=== PATIENT | male | born 1985 ===

== ENCOUNTER 2017-07-09 19:25 | Inpatient (IN) | payer MEDICAID ==
[2017-07-09 19:30] VITALS: BMI 28.5
--- NOTE | 2017-07-09 19:54 | ED PDOC ---
Arrival/HPI - General Chief Complaint: Psychiatric Evaluation Time Seen by Provider: 07/09/17 19:53 Past Medical History - Infectious Disease Hx of Infectious Diseases: None - Cardiac Hx Cardiac Disorders: No - Pulmonary Hx Respiratory Disorders: No - Neurological Hx Neurological Disorder: No - HEENT Hx HEENT Disorder: No - Renal Hx Renal Disorder: No - Endocrine/Metabolic Hx Endocrine Disorders: No - Hematological/Oncological Hx Blood Disorders: No - Integumentary Hx Dermatological Disorder: No - Musculoskeletal/Rheumatological Hx Musculoskeletal Disorders: No - Gastrointestinal Hx Gastrointestinal Disorders: No - Genitourinary/Gynecological Hx Genitourinary Disorders: No - Psychiatric Hx Psychophysiologic Disorder: Yes Hx Bipolar Disorder: Yes Hx Schizophrenia: Yes Hx Substance Use: Yes - Anesthesia Hx Anesthesia: No Family/Social History Smoking Status: Heavy Smoker > 10 Cigarettes Daily Hx Alcohol Use: Yes Frequency of alcohol use: Socially Hx Substance Use: Yes Substance used: marijuana Physical Exam Vital Signs Temp Pulse Resp BP Pulse Ox 07/09/17 19:25 97.5 F L 87 16 133/95 H 100 Disposition/Present on Arrival - Present on Arrival History of DVT/PE: No History of Uncontrolled Diabetes: No Urinary Catheter: No History of Decub. Ulcer: No History Surgical Site Infection Following: None - Disposition Referrals: Dash Michel MD [Primary Care Provider] - Follow up with primary
--- NOTE | 2017-07-09 20:22 | ED PDOC ---
Arrival/HPI - General Historian: Patient, Other ([facility]) - General Chief Complaint: Psychiatric Evaluation Time Seen by Provider: 07/09/17 19:53 - History of Present Illness Narrative History of Present Illness (Text): 07/09/17 20:19 31yr old male presents as transfer from [facility] for schizoaffective disorder with SI. pt states he is feeling depressed. no cp or sob. no abdominal pain. no fever/chills. no other complaints (Azoia,Alyssa T) Past Medical History - Provider Review Nursing Documentation Reviewed: Yes - Travel History Have you recently traveled outside [place] w/in the past 3 mons?: No - Infectious Disease Hx of Infectious Diseases: None - Cardiac Hx Cardiac Disorders: No - Pulmonary Hx Respiratory Disorders: No - Neurological Hx Neurological Disorder: No - HEENT Hx HEENT Disorder: No - Renal Hx Renal Disorder: No - Endocrine/Metabolic Hx Endocrine Disorders: No - Hematological/Oncological Hx Blood Disorders: No - Integumentary Hx Dermatological Disorder: No - Musculoskeletal/Rheumatological Hx Musculoskeletal Disorders: No - Gastrointestinal Hx Gastrointestinal Disorders: No - Genitourinary/Gynecological Hx Genitourinary Disorders: No - Psychiatric Hx Psychophysiologic Disorder: Yes Hx Bipolar Disorder: Yes Hx Schizophrenia: Yes Hx Substance Use: Yes - Anesthesia Hx Anesthesia: No Family/Social History - Physician Review Nursing Documentation Reviewed: Yes Family/Social History: Unknown Family HX Smoking Status: Heavy Smoker > 10 Cigarettes Daily Hx Alcohol Use: Yes Frequency of alcohol use: Socially Hx Substance Use: Yes Substance used: marijuana Allergies/Home Meds Allergies/Adverse Reactions: Allergies No Known Allergies Allergy (Verified 07/09/17 20:15) Review of Systems - Review of Systems Constitutional: absent: Fatigue, Fevers Respiratory: absent: SOB, Cough Cardiovascular: absent: Chest Pain, Palpitations Gastrointestinal: absent: Abdominal Pain, Nausea, Vomiting Musculoskeletal: absent: Arthralgias Skin: absent: Rash, Pruritis Psychiatric: Depression, Suicidal Ideation. absent: Anxiety Physical Exam Vital Signs Reviewed: Yes Temperature: Afebrile Blood Pressure: Hypertensive Pulse: Regular Respiratory Rate: Normal Appearance: Positive for: Well-Appearing, Non-Toxic, Comfortable Pain Distress: None Mental Status: Positive for: Alert and Oriented X 3 - Systems Exam Head: Present: Atraumatic Respiratory/Chest: Present: Clear to Auscultation Cardiovascular: Present: Regular Rate and Rhythm Abdomen: No: Tenderness Upper Extremity: Present: Normal Inspection Lower Extremity: Present: Normal Inspection Neurological: Present: GCS=15, Speech Normal Skin: Present: Warm, Dry, Normal Color. No: Rashes Psychiatric: Present: Alert, Oriented x 3, Depressed Mood, Suicidal Ideation Vital Signs Temp Pulse Resp BP Pulse Ox 07/09/17 19:25 97.5 F L 87 16 133/95 H 100 Medical Decision Making ED Course and Treatment: 07/09/17 20:20 31yr old male transfer from [facility] with SI. labs reviewed from [facility] charting. pt with stable vitals. no distress. accepting physician; dr. díaz impression; schizoaffective disorder admit to behavioral health floor (Alyssa Eason) - Medication Orders Current Medication Orders: Acetaminophen (Tylenol 325mg Tab) 650 mg PO Q4 PRN PRN Reason: Pain, moderate (4-7) Al Hydrox/Mg Hydrox/Simethicone (Maalox Plus 30 Ml) 30 ml PO DAILY PRN PRN Reason: Upset Stomach Divalproex Sodium (Depakote Dr (*Bid*)) 500 mg PO BID SAM PRN Reason: Protocol Folic Acid (Folic Acid) 1 mg PO DAILY SAM Lorazepam (Ativan) 2 mg PO TID SAM PRN Reason: Protocol Lorazepam (Ativan) 2 mg PO Q6H PRN; Protocol PRN Reason: Agitation Magnesium Hydroxide (Milk Of Magnesia) 30 ml PO DAILY PRN PRN Reason: Constipation Quetiapine Fumarate (Seroquel) 150 mg PO HS SAM PRN Reason: Protocol Sertraline HCl (Zoloft) 100 mg PO DAILY SAM Trazodone HCl (Desyrel) 50 mg PO HS PRN PRN Reason: Insomnia Ziprasidone (Geodon Cap) 20 mg PO Q6 PRN; Protocol PRN Reason: Agitation Ziprasidone (Geodon Inj) 20 mg IM Q6 PRN; Protocol PRN Reason: Agitation Discontinued Medications Lorazepam (Ativan) 2 mg PO PRN PRN; Protocol PRN Reason: alcohol withdrawal Disposition/Present on Arrival - Present on Arrival Any Indicators Present on Arrival: No History of DVT/PE: No History of Uncontrolled Diabetes: No Urinary Catheter: No History of Decub. Ulcer: No History Surgical Site Infection Following: None - Disposition Have Diagnosis and Disposition been Completed?: Yes Disposition Time: 20:22 Patient Plan: Admission - Disposition Diagnosis: Schizoaffective disorder Disposition: HOSPITALIZED Condition: FAIR
[2017-07-09] MEDS ORDERED: Alum-Mag Hydrox-Simethicone Susp (30 mL) PO PRN (20:29)
[2017-07-09] MEDS ORDERED: Magnesium Hydroxide Susp 30 ml UD PO PRN (20:29)
--- NOTE | 2017-07-09 22:54 | PCM.BM ---
<Gamaliel Howe - Last Filed: 07/09/17 22:52> Treatment Plan Problems - Problems identified on initial assessmt Depression Date Initiated: 07/09/17 Time Initiated: 21:30 Assessment reference: NA Status: Active suicidal ideation Date Initiated: 07/09/17 Time Initiated: 21:30 Assessment reference: NA Status: Referred Treatment assets and liabiliti Patient Assests: cooperative, educated, self-reliant, ADL independent, negotiates basic needs Patient Liabilities: financial problems, poor support system, substance abuse - Milieu Protocol Maintain good personal hygiene: daily Encourage regular showers, daily Remind patient to perform daily oral care, daily Assist patient to perform ADL's Conduct patient checks and document Observation sheet: Q15 minutes Maintain personal safety: every shift Educate patient to report safety concerns to staff, every shift Monitor environment for contraband/sharps Medication safety: Monitor for expected outcome, potential side effects: every shift, Assess barriers to learning: every shift, Assess readiness for medication education: every shift Discharge/Continuing Care - Education Needs Education Needs: Patient Medication, Patient Diagnosis/Disease Process, Patient Coping Skills, Patient Anger Management skills, Patient Community resources, Patient Activities of Daily Living - Discharge Discharge Criteria: Tolerates medication w/o severe side effects, Free of Suicidal thoughts, Free of Homicidal thoughts <Emely Mota - Last Filed: 07/10/17 16:04> Family Contact Family involvement: Famliy/SO not involved <Tl Newsome - Last Filed: 07/13/17 10:01> Treatment Plan Problems - Problems identified on initial assessmt Ineffective Coping Date Initiated: 07/13/17 Time Initiated: 10:00 Assessment reference: NA Status: Active Priority: 1 Hopelessness Date Initiated: 07/13/17 Time Initiated: 10:00 Assessment reference: NA Status: Active Priority: 2 Worthlessness Date Initiated: 07/13/17 Time Initiated: 10:01 Assessment reference: NA Priority: 3 Medication Nonadherence Date Initiated: 07/13/17 Time Initiated: 10:01 Assessment reference: NA Status: Active Priority: 4
[2017-07-10 07:40] LABS: CHOLESTEROL 186 mg/dL (130-200); GLUCOSE,FASTING 90 mg/dL (65-110)
[2017-07-10] MEDS: Divalproex 250 mg DR (BID formulation) PO SCH ×2 (10:02→15:55)
--- NOTE | 2017-07-10 12:42 | CP.PCM.CON ---
<Jake Aguilar - Last Filed: 07/10/17 15:59> History of Present Illness - History of Present Illness History of Present Illness: This is a 31 year old male with a past medical history of schizo-affective disorder with Suicidal ideation who comes to the emergency department after feeling down and drinking 2 24oz. 4 [employer] beers. The patient reports wanting to hurt himself and called the the ambulance to come to emergency department. The patient was admitted to the Psychiatry unit at [facility] as a result. The patient's last attempt at self harm was August 2016 when he took 35 Motrin pills. The patient denies SI, HI, AH, VH at this time. The patient denies any chest pain, lightheadedness, dizziness, changes in vision, abdominal pain, palpitations, or any other complaints. PMD: Dr. Michel Psychiatrist: Dr. Jeter Past medical hx:See HPI Medications: Tylenol, Maalox, Depakote, Folic Acid, Ativan, Milk of Magnesia, Seroquel, Zoloft, Desyrel, Geodon Past surgical hx: None Allergies: NKDA Family hx: Grandfather(Type 2 Diabetes Mellitus) Review of Systems - Constitutional Constitutional: As Per HPI - EENT Eyes: As Per HPI Ears: As Per HPI Nose/Mouth/Throat: As Per HPI - Cardiovascular Cardiovascular: As Per HPI - Respiratory Respiratory: As Per HPI - Gastrointestinal Gastrointestinal: As Per HPI - Genitourinary Genitourinary: As Per HPI - Musculoskeletal Musculoskeletal: As Per HPI - Integumentary Integumentary: As Per HPI - Neurological Neurological: As Per HPI - Psychiatric Psychiatric: As Per HPI - Endocrine Endocrine: As Per HPI Past Patient History - Infectious Disease Hx of Infectious Diseases: None - Past Social History Smoking Status: Heavy Smoker > 10 Cigarettes Daily - CARDIAC Hx Cardiac Disorders: No - PULMONARY Hx Respiratory Disorders: No - NEUROLOGICAL Hx Neurological Disorder: No - HEENT Hx HEENT Problems: No - RENAL Hx Chronic Kidney Disease: No - ENDOCRINE/METABOLIC Hx Endocrine Disorders: No - HEMATOLOGICAL/ONCOLOGICAL Hx Blood Disorders: No - INTEGUMENTARY Hx Dermatological Problems: No - MUSCULOSKELETAL/RHEUMATOLOGICAL Hx Musculoskeletal Disorders: No - GASTROINTESTINAL Hx Gastrointestinal Disorders: No - GENITOURINARY/GYNECOLOGICAL Hx Genitourinary Disorders: No - PSYCHIATRIC Hx Depression: Yes Hx Substance Use: Yes - SURGICAL HISTORY Hx Surgeries: No - ANESTHESIA Hx Anesthesia: No Meds Allergies/Adverse Reactions: Allergies Allergy/AdvReac Type Severity Reaction Status Date / Time No Known Allergies Allergy Verified 07/09/17 22:08 - Medications Medications: Current Medications Acetaminophen (Tylenol 325mg Tab) 650 mg PO Q4 PRN PRN Reason: Pain, moderate (4-7) Al Hydrox/Mg Hydrox/Simethicone (Maalox Plus 30 Ml) 30 ml PO DAILY PRN PRN Reason: Upset Stomach Divalproex Sodium (Depakote Dr (*Bid*)) 500 mg PO BID SAM PRN Reason: Protocol Last Admin: 07/10/17 10:02 Dose: 500 mg Folic Acid (Folic Acid) 1 mg PO DAILY [facility] Last Admin: 07/10/17 10:02 Dose: 1 mg Lorazepam (Ativan) 2 mg PO TID SAM PRN Reason: Protocol Last Admin: 07/10/17 10:01 Dose: 2 mg Lorazepam (Ativan) 2 mg PO Q6H PRN; Protocol PRN Reason: Agitation Magnesium Hydroxide (Milk Of Magnesia) 30 ml PO DAILY PRN PRN Reason: Constipation Quetiapine Fumarate (Seroquel) 150 mg PO HS SAM PRN Reason: Protocol Last Admin: 07/09/17 21:38 Dose: 150 mg Sertraline HCl (Zoloft) 100 mg PO DAILY [facility] Last Admin: 07/10/17 10:02 Dose: 100 mg Trazodone HCl (Desyrel) 50 mg PO HS PRN PRN Reason: Insomnia Ziprasidone (Geodon Cap) 20 mg PO Q6 PRN; Protocol PRN Reason: Agitation Ziprasidone (Geodon Inj) 20 mg IM Q6 PRN; Protocol PRN Reason: Agitation Physical Exam - Head Exam Head Exam: ATRAUMATIC, NORMAL INSPECTION, NORMOCEPHALIC - Eye Exam Eye Exam: EOMI, Normal appearance, PERRL. absent: Periorbital tenderness Pupil Exam: NORMAL ACCOMODATION, PERRL. absent: Irregular, Unequal - ENT Exam ENT Exam: Mucous Membranes Moist, Normal Exam. absent: Normal Oropharynx, TM's Normal Bilaterally - Neck Exam Neck exam: Positive for: Normal Inspection. Negative for: Lymphadenopathy, Thyromegaly - Respiratory Exam Respiratory Exam: Clear to Auscultation Bilateral, NORMAL BREATHING PATTERN. absent: Chest Wall Tenderness, Prolonged Expiratory Phase, Respiratory Distress - Cardiovascular Exam Cardiovascular Exam: REGULAR RHYTHM, RRR, +S1, +S2. absent: Gallop, Rubs - GI/Abdominal Exam GI & Abdominal Exam: Normal Bowel Sounds, Soft. absent: Organomegaly, Tenderness - Back Exam Back exam: NORMAL INSPECTION. absent: CVA tenderness (L), CVA tenderness (R), paraspinal tenderness - Neurological Exam Neurological exam: Alert, CN II-XII Intact, Normal Gait, Oriented x3, Reflexes Normal - Psychiatric Exam Psychiatric exam: Normal Affect, Normal Mood - Skin Skin Exam: Dry, Intact, Normal Color, Warm Results - Vital Signs Recent Vital Signs: Last Vital Signs Temp 97.7 F 07/10/17 06:45 Pulse 64 07/10/17 06:45 Resp 20 07/10/17 06:45 BP 110/72 07/10/17 06:45 Pulse Ox 97 07/09/17 21:00 - Labs Labs: Laboratory Results - last 24 hr 07/10/17 07/10/17 07:20 07:20 Fasting Glucose 90 Triglycerides 140 Cholesterol 186 LDL Cholesterol Direct 82 HDL Cholesterol 71 H TSH 3rd Generation 0.56 Assessment & Plan - Assessment and Plan (Free Text) Assessment: This is a 31 year old male with a past medical history of shizo-affective disorder who was admitted to Psychiatry inpatient service at [facility]. Plan: 1. Schizo-affective disorder w/ SI. -Patient currently denies any SI, HI, AH, VH upon examination. -Will manage per Psychiatric recommendations. 2.Marijuana cessation -Patient reports occasional marijuana usage. -Counseled patient on cessation. Patient at this point has no medical complaints. The patient is a-febrile with no leukocytosis. TSH is normal, Hemoglobin and Hematocrit are stable, and liver enzymes are normal. Patient is hemo-dynamically stable and no medical intervention is required at this time. We are signing off. Feel free to consult us again if necessary. <Steve Leigh - Last Filed: 07/11/17 11:03> Meds - Medications Medications: Current Medications Acetaminophen (Tylenol 325mg Tab) 650 mg PO Q4 PRN PRN Reason: Pain, moderate (4-7) Al Hydrox/Mg Hydrox/Simethicone (Maalox Plus 30 Ml) 30 ml PO DAILY PRN PRN Reason: Upset Stomach Divalproex Sodium (Depakote Dr (*Bid*)) 500 mg PO BID SAM PRN Reason: Protocol Last Admin: 07/11/17 08:37 Dose: 500 mg Folic Acid (Folic Acid) 1 mg PO DAILY [facility] Last Admin: 07/11/17 08:37 Dose: 1 mg Lorazepam (Ativan) 2 mg PO TID SAM PRN Reason: Protocol Last Admin: 07/11/17 08:37 Dose: 2 mg Lorazepam (Ativan) 2 mg PO Q6H PRN; Protocol PRN Reason: Agitation Magnesium Hydroxide (Milk Of Magnesia) 30 ml PO DAILY PRN PRN Reason: Constipation Quetiapine Fumarate (Seroquel) 150 mg PO HS SAM PRN Reason: Protocol Last Admin: 07/10/17 22:08 Dose: 150 mg Sertraline HCl (Zoloft) 100 mg PO DAILY [facility] Last Admin: 07/11/17 08:37 Dose: 100 mg Trazodone HCl (Desyrel) 50 mg PO HS PRN PRN Reason: Insomnia Ziprasidone (Geodon Cap) 20 mg PO Q6 PRN; Protocol PRN Reason: Agitation Ziprasidone (Geodon Inj) 20 mg IM Q6 PRN; Protocol PRN Reason: Agitation Results - Vital Signs Recent Vital Signs: Last Vital Signs Temp 97.7 F 07/11/17 07:00 Pulse 68 07/11/17 07:00 Resp 20 07/11/17 07:00 BP 110/65 07/11/17 07:00 Pulse Ox 97 07/09/17 21:00 - Labs Labs: Laboratory Results - last 24 hr 07/10/17 07:20 RPR Nonreactive Attending/Attestation - Attestation I have personally seen and examined this patient.: Yes I have fully participated in the care of the patient.: Yes I have reviewed all pertinent clinical information: Yes Notes (Text): 07/11/17 11:02 Patient was seen and examined with paramedical aide. Agreed with resident assessment and plan. There is no active medical issue with this patient.We will sign off. Management plan was discussed in detail with patient Education was provided.
--- NOTE | 2017-07-10 21:06 | HP ---
IDENTIFYING INFORMATION: The patient is a 31-year-old male admitted because of feelings of depression. HISTORY OF PRESENT ILLNESS: The patient indicates that he needed to a "break from reality" and expressing feelings of depression after having been incarcerated (he was released after 5 years of imprisonment for aggravated assault in 2014). He reported having been in "quite a few" jailings including due the missed payment for fines, disorderly conduct, drinking in public with his last having drank about 2 days ago. He reported has been drinking alcohol again since this past March and reported to be depressed about his living conditions as he is living with his mother, who is "strict" and being dependent on her. His mother aged 55, resides in [place]. He denies any current suicidal ideation. He reported he initially came to the [facility] and was transferred here. While in the emergency room, he did express homicidal and suicidal thoughts and being "angry" about his condition. He presently, however, in his depressed, withdrawn state, denied homicidal thoughts. He indicated that he had seen a psychiatrist recently in [place], Dr. Jeter, who started him on Zoloft 50 mg. In the past, he had also been on Risperdal for 6 months (in 2014) prescribed by a [facility] Psychiatrist. He reported approximately 4 to 5 prior psychiatric admissions with his first at the age 23 at [facility]. He made his first suicide attempt last year by overdosing on Motrin leading to a [facility] hospitalization, leading then to a transfer to [facility] ([facility]viously [facility]). He denied any substance use (he had smoked substance use). He denied ever having any victim of emotional or sexual abuse. The patient indicated that he is a high school graduate who ended in where he remained for 4 years and was stationed at [employer] but who was given a "general discharge" because he tested positive for marijuana (again underscoring his lack of reliabilities earlier, he denied any substance abuse history). 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 He had worked for approximately 3 years at "[employer]," but was released because of his drinking alcohol. He then started having legal difficulties. He has not been but has had 2 significant relationships. 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 He then had a relationship approximately 2 years, but he terminated that marriage when she had a termination of a against his wishes. The patient reports he is an only child. He denied any familial psychiatric or substance abuse history. The patient smokes 5 cigarettes daily. He wants to stop smoking. He was given a nicotine patch. He has been drinking about two 24 ounces of vodka daily. DIAGNOSES: Depression, not otherwise specified, marijuana use, alcohol use, rule out other substance use. The patient is presently being maintained on Ativan 2 mg t.i.d., Depakote 500 mg b.i.d., Seroquel 150 mg at bedtime. HDL cholesterol was elevated at 61. Other indices are within normal limits. Rudy Mims MD/ PhD
[2017-07-11] MEDS: Divalproex 250 mg DR (BID formulation) PO SCH ×2 (08:37→17:09)
--- NOTE | 2017-07-11 08:48 | PCM.PYCHPN ---
Psychiatric Progress Note - Psychiatric Progress Note Patient seen today, length of contact: 25 min Patient Chief Complaint: "okay" Problems Identified/Issues Discussed: I reviewed assessment and recent notes. Patient was interviewed at bedside. He is oriented to location, month, year and circumstances. Reports feeling "okay". Affect is constricted. Patient denies any new concerns. Responses are logical and goal directed. He denies hallucinations. He is comfortable and denies side effects from medications. Staff notes indicate that patient spends most of his time in his room. He is pleasant upon approach but not interactive or talkative. Didn't go to group last evening. There were no behavioral issues overnight. Diagnostic Results: Depression NOS MJA Use Disorder Alcohol Use Medication Change: No Medical Record Reviewed: Yes Mental Status Examination - Cognitive Function Orientation: Person, Place, Situation Attention: WNL Concentration: WNL Association: WNL Fund of Knowledge: WNL - Mood Mood: Depressed ("okay") - Affect Affect: Constricted - Speech Speech: Appropriate - Formal Thought Process Formal Thought Process: No Impairment - Suicidal Ideation Suicidal Ideation: No - Homicidal Ideation Homicidal Ideation: No Goal/Treatment Plan - Goal/Treatment Plan Progress Toward Problem(s) and Goals/Treatment Plan: * c/w current tx and plan * No new weekend labs * Vitals reviewed and noted below: Selected Entries 07/09/17 07/10/17 07/10/17 21:00 06:45 16:04 Temperature 98.3 F 97.7 F Pulse Rate 73 64 74 Respiratory 18 20 Rate Blood Pressure 125/91 H 110/72 124/72 O2 Sat by Pulse 97 Oximetry
[2017-07-12] MEDS: Divalproex 250 mg DR (BID formulation) PO SCH ×2 (09:22→16:54)
--- NOTE | 2017-07-12 09:23 | PCM.PYCHPN ---
Psychiatric Progress Note - Psychiatric Progress Note Patient seen today, length of contact: 25 min Patient Chief Complaint: "okay, better, my mind is clearer" Problems Identified/Issues Discussed: I reviewed recent notes and interviewed patient at bedside. He is oriented to location, month, year and circumstances. Reports feeling "okay, better, my mind is clearer". Affect remains constricted. Patient denies any new concerns. Responses are logical and goal directed. He denies hallucinations and paranoia. He is comfortable and denies side effects from medications or issues with sleep/ appetite. Staff notes indicate that patient spends most of his time in his room. He is pleasant upon approach but not interactive or talkative. Didn't go to group last evening. There were no behavioral issues over the weekend. Patient signed 48 hour notice on 07/11/17 at 6:47 AM. Diagnostic Results: Depression NOS MJA Use Disorder Alcohol Use Medication Change: Yes (ativan decreased) Medical Record Reviewed: Yes Mental Status Examination - Cognitive Function Orientation: Person, Place, Situation Attention: WNL Concentration: WNL Association: WNL Fund of Knowledge: WNL - Mood Mood: Depressed ("okay, better, my mind is clearer) - Affect Affect: Constricted - Speech Speech: Appropriate - Formal Thought Process Formal Thought Process: No Impairment - Suicidal Ideation Suicidal Ideation: No - Homicidal Ideation Homicidal Ideation: No Goal/Treatment Plan - Goal/Treatment Plan Progress Toward Problem(s) and Goals/Treatment Plan: * c/w current tx and plan * No new weekend labs * Ativan decreased from 2 mg po TID to [facility] on on 07/12/17. Patient is also scheduled to received a dose of Ativan 2 mg at 6 am prior to discharge AMA. * Vitals reviewed and noted below: Selected Entries 07/11/17 07/11/17 07/11/17 06:56 07:00 15:46 Temperature 97.7 F 97.7 F Pulse Rate 68 68 60 Respiratory 20 20 Rate Blood Pressure 110/65 110/65 94/51 L * Patient signed 48 hour notice on 07/11/17 at 6:47 AM, patient may be discharged on 07/13/17 against medical advice in the AM.
[2017-07-12 16:48] VITALS: O2SAT 99
[2017-07-13 06:33] VITALS: RESP 20; TEMP 98.1
[2017-07-13] MEDS: Divalproex 250 mg DR (BID formulation) PO SCH ×2 (09:00→17:34)
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
[2017-07-13 16:45] VITALS: BP 98/57; PULSE 65
== END 2017-07-13 21:00 | disposition home or self-care (01) | DRG 426 ==
LOC: ED 19:25 → PSYC 20:17
PROVIDERS: ADMIT Psychiatry & Neurology Psychiatry; ATTEND Psychiatry & Neurology Psychiatry
DX: F32.9 Major depressive disorder, single episode, unspecified (principal); R45.851 Suicidal ideations; F17.210 Nicotine dependence, cigarettes, uncomplicated; F12.90 Cannabis use, unspecified, uncomplicated; Z72.89 Other problems related to lifestyle